=== PATIENT | female | born 2000 | race African-American/Black ===

== ENCOUNTER 2021-06-03 10:06 | Outpatient (CLI) | payer MEDICAID ==
[~2021-06-03] VITALS: Ht 172.7 cm; Wt 90.9 kg
[~2021-06-03 10:06] MED LIST: AUGMENTIN ES-6125 ML PO; NO HOME MEDICATIONS
--- NOTE | 2021-06-03 10:25 | NUR ---
Pt arrived on unit ambulatory escorted by pt's boyfriend and mother. Pt was sent over from the office for elevated blood pressures. Pt denies any contractions, leaking of fluid or vaginal bleeding and reports normal movement. EFM and toco monitor started. Serial BP set up. Orders for labs received. Plan of care reviewed with pt.
[2021-06-03] MEDS ORDERED: PRENATAL (10:32)
[2021-06-03 10:38] VITALS: BP 147/107; PULSE 97
[2021-06-03 10:44] VITALS: BP 139/97; PULSE 88
[2021-06-03 11:00] VITALS: BP 140/105; PULSE 101; TEMP 97.9
[2021-06-03 11:07] LABS: BASO % 0.5 % (0.0-2.0); EOS % 0.2 % (0.0-4.0); GRAN # 4.8 K/mm3 (1.4-6.5); GRAN % 72.8 % (42.2-75.2); HEMOGLOBIN 10.6 g/dl (12.0-15.0); LYMPH % 15.5 % (20.0-51.0); MEAN CELL VOLUME 79 fl (80.0-95.0); MEAN CORPUSCULAR HEMOGLOBIN 25 pg (26-32); MEAN CORPUSCULAR HGB CONC 32 g/dl (33.0-37.0); MEAN PLATELET VOLUME 12.1 fl (7.4-10.4); MONO # 0.7 K/mm3 (0.1-0.6); MONO % 10.1 % (1.7-9.3); PLATELET COUNT 184 K/mm3 (130-400); RED BLOOD COUNT 4.22 M/mm3 (4.10-5.30); REDCELL DISTRIBUTION WIDTH-CV 13.9 % (11.5-14.5)
[2021-06-03 11:09] LABS: HEMATOCRIT 33.3 % (35.0-45.0)
[2021-06-03 11:14] VITALS: BP 136/89; PULSE 84
[2021-06-03 11:18] LABS: ALBUMIN 2.8 gm/dL (3.5-5.0); BILIRUBIN,TOTAL 0.5 mg/dL (0.2-1.2); CALCIUM 8.2 mg/dL (8.4-10.2); CREATININE, serum 0.6 mg/dL (0.57-1.11); TOTAL PROTEIN 6.4 gm/dL (6.2-8.1)
[2021-06-03 11:29] VITALS: BP 135/86; PULSE 85
--- NOTE | 2021-06-03 11:35 | NUR ---
Discharge instructions and follow up care reviewed with pt and family at the bedside. Pt verbalized an understanding, agreed with the plan and states no questions or concerns at this time.
[2021-06-03 11:40] VITALS: BP 136/91; PULSE 83
== END 2021-06-03 11:50 | disposition home or self-care (01) ==
LOC: LDRO 10:06
PROVIDERS: Obstetrics & Gynecology
DX: O16.3 Unspecified maternal hypertension, third trimester (principal); Z3A.39 39 weeks gestation of pregnancy

== ENCOUNTER 2021-06-04 07:10 | Inpatient (IN) | payer MEDICAID ==
[~2021-06-04] VITALS: Ht 172.7 cm; Wt 90.9 kg
[~2021-06-04 07:10] MED LIST changes: +PRENATAL
[2021-06-07] VITALS (50 sets, daily range): BP systolic 119–179; BP diastolic 70–125; PULSE 53–130; TEMP 97.3–99
[2021-06-07 08:07] LABS: BASO % 0.3 % (0.0-2.0); EOS % 0.2 % (0.0-4.0); GRAN # 4.9 K/mm3 (1.4-6.5); HEMOGLOBIN 10.3 g/dl (12.0-15.0); LYMPH % 15.6 % (20.0-51.0); MEAN CELL VOLUME 79 fl (80.0-95.0); MEAN CORPUSCULAR HEMOGLOBIN 25 pg (26-32); MEAN CORPUSCULAR HGB CONC 32 g/dl (33.0-37.0); MEAN PLATELET VOLUME 12.5 fl (7.4-10.4); MONO # 0.6 K/mm3 (0.1-0.6); MONO % 8.5 % (1.7-9.3); PLATELET COUNT 208 K/mm3 (130-400); RED BLOOD COUNT 4.14 M/mm3 (4.10-5.30); REDCELL DISTRIBUTION WIDTH-CV 13.6 % (11.5-14.5)
[2021-06-07 08:14] LABS: HEMATOCRIT 32.6 % (35.0-45.0)
[2021-06-07 10:59] LABS: TRICYCLIC ANTIDEPRESS URINE NEGATIVE
[2021-06-08] VITALS (24 sets, daily range): BP systolic 110–140; BP diastolic 61–97; PULSE 84–212; TEMP 97.7–99.1
[2021-06-08 14:18] LABS: MEAN CELL VOLUME 78 fl (80.0-95.0); MEAN CORPUSCULAR HGB CONC 33 g/dl (33.0-37.0); MEAN PLATELET VOLUME 11.9 fl (7.4-10.4); PLATELET COUNT 201 K/mm3 (130-400); REDCELL DISTRIBUTION WIDTH-CV 13.9 % (11.5-14.5)
[2021-06-08 14:19] LABS: HEMATOCRIT 24.2 % (35.0-45.0); HEMOGLOBIN 7.9 g/dl (12.0-15.0); MEAN CORPUSCULAR HEMOGLOBIN 25 pg (26-32)
[2021-06-08 22:03] LABS: MEAN CELL VOLUME 80 fl (80.0-95.0); MEAN CORPUSCULAR HGB CONC 32 g/dl (33.0-37.0); MEAN PLATELET VOLUME 12.3 fl (7.4-10.4); PLATELET COUNT 145 K/mm3 (130-400); RED BLOOD COUNT 2.81 M/mm3 (4.10-5.30); REDCELL DISTRIBUTION WIDTH-CV 14.5 % (11.5-14.5)
[2021-06-08 22:05] LABS: HEMATOCRIT 22.5 % (35.0-45.0); HEMOGLOBIN 7.3 g/dl (12.0-15.0); MEAN CORPUSCULAR HEMOGLOBIN 26 pg (26-32)
[2021-06-09 00:30] VITALS: BP 120/75; PULSE 103; TEMP 97.5
[2021-06-09 04:45] VITALS: BP 123/80; PULSE 90; TEMP 98.2
[2021-06-09 08:00] VITALS: BP 129/92; PULSE 81; TEMP 97.8
[2021-06-09 12:30] VITALS: BP 124/74; PULSE 90; TEMP 97.5
[2021-06-09 16:30] VITALS: BP 134/83; PULSE 93; TEMP 97.9
[2021-06-09 19:30] VITALS: BP 132/79; PULSE 102; TEMP 99
[2021-06-10] MEDS ORDERED: PROCARDIA XL 6060 MG PO (08:22)
[2021-06-10] MEDS ORDERED: MOTRIN 800800 MG/TAB PO (08:23)
== END 2021-06-10 12:10 | disposition home or self-care (01) | DRG 798 ==
LOC: OB 07:10 → LDR 06-07 06:12 → OB 06-07 07:31
PROVIDERS: Obstetrics & Gynecology
PROC: 10E0XZZ Delivery of Products of Conception, External Approach (ICD-10-PCS; principal; 2021-06-07)
PROC: 0KQM0ZZ Repair Perineum Muscle, Open Approach (ICD-10-PCS; 2021-06-07)
PROC: 10907ZC Drainage of Amniotic Fluid, Therapeutic from Products of Conception, Via Natural or Artificial Opening (ICD-10-PCS; 2021-06-07)
PROC: 10D17ZZ Extraction of Products of Conception, Retained, Via Natural or Artificial Opening (ICD-10-PCS; 2021-06-08)
DX: O13.4 Gestational [pregnancy-induced] hypertension without significant proteinuria, complicating childbirth (principal); Z37.0 Single live birth; O72.1 Other immediate postpartum hemorrhage; D64.9 Anemia, unspecified; O90.81 Anemia of the puerperium; O70.1 Second degree perineal laceration during delivery; O76 Abnormality in fetal heart rate and rhythm complicating labor and delivery; Z3A.40 40 weeks gestation of pregnancy; Z23 Encounter for immunization
CPT/HCPCS: J0330; J0360; J2210; J2405; J2590; J2704; J3010; J7050; J7120; P9016